=== PATIENT | male | born 1985 | race Two or more races ===

== ENCOUNTER 2023-12-07 14:32 | Emergency (ER) | payer OTHER ==
[2023-12-07 15:02] VITALS: O2SAT 99
--- NOTE | 2023-12-07 18:46 | XRAY Report ---
PROCEDURE: Knee 3V LT INDICATIONS: lower leg swelling TECHNIQUE: 3 views of the knee(s) were acquired. COMPARISON: None. FINDINGS: Bones: No fractures or dislocations. Medial femoral tibial compartment joint space narrowing, subch ondral sclerosis and and marginal osteophyte formation is seen. No significant patellar subluxation. No suspicious bony lesions. Soft tissues: Large knee joint effusion. No suspicious soft tissue calcifications or masses. IMPRESSION: No acute left knee fracture or dislocation. Mild medial femoral tibial compartment osteoarthritis. La rge joint effusion. Reviewed by: Chaparro Schmitt MD on 12/07/2023 6:45 PM PDT Approved by: Chaparro Schmitt MD on 12/07/2023 6:45 PM PDT Station ID: [id number]
--- NOTE | 2023-12-07 18:47 | Ultrasound Report ---
PROCEDURE: Duplex Ext Veins Left INDICATIONS: lower leg swelling TECHNIQUE: Real-time imaging, as well as color and pulse Doppler interrogation, were performed of the lower extr emity deep veins from the inguinal ligament to the popliteal fossa. Attempted visualization of the ca lf veins was performed. COMPARISON: None. FINDINGS: The deep veins are normally compressible, and free of intraluminal thrombus. Color and pu lse Doppler demonstrate normal phasic intraluminal flow. There is normal augmentation response to di stal compression maneuver. There is a significant left knee joint effusion measures 12.9 x 3.1 x 17.1 cm in size. No popliteal c yst is seen. IMPRESSION: No deep venous thrombosis of the visualized lower extremity. Large joint effusion. No popliteal cyst. Reviewed by: Chaparro Schmitt MD on 12/07/2023 6:46 PM PDT Approved by: Chaparro Schmitt MD on 12/07/2023 6:46 PM PDT Station ID: [id number]
--- NOTE | 2023-12-07 19:19 | ED Physician Documentation ---
History of Present Illness - Stated complaint Stated Complaint: LT KNEE SWOLLEN - Chief complaint Chief Complaint: Ext Problem - History obtained from History obtained from: Patient - History of Present Illness Pain level max: 8 Pain level now: 8 - Additonal information Additional information: . Patient is a 38-year-old male presenting to the emergency department with left knee swelling he notes symptoms started on shortly after he returned from a trip to [place]. Patient notes he has a history of gout as well he has been trying his colchicine at home that he takes for flareups without relief. Patient is not on any daily gout medication. He denies any fevers or chills he is able to bear weight on it. He notes this is occurred before with his history of gout and it resolved on its own after colchicine. Patient has concerns today of swelling now has extended to his left foot and he recently traveled he is concerned for possible clot in his leg. Patient has no history of DVT or PE. No history of surgery to his left knee or foot. PD PAST MEDICAL HISTORY - Past Medical History Past Medical History: Yes Other Past Medical History: gout - Past Surgical History Past Surgical History: Yes Ortho: Other - Present Medications Home Medications: Ambulatory Orders Medication Instructions Recorded Confirmed predniSONE [Deltasone] 20 mg PO [id number] #21 tab 12/07/23 - Allergies Allergies/Adverse Reactions: Allergies Allergy/AdvReac Type Severity Reaction Status Date / Time No Known Drug Allergies Allergy Verified 12/07/23 14:53 - Social History Does the pt smoke?: No Smoking Status: Never smoker Does the pt drink ETOH?: Yes Does the pt have substance abuse?: No - Immunizations Immunizations are current?: Yes Results - Vitals Vitals: Vital Signs - 24 hr 12/07/23 14:53 Temperature 36.5 C Heart Rate 100 Respiratory 16 Rate Blood Pressure 149/97 H O2 Saturation 99 PD Medical Decision Making - ED course Complexity details: reviewed results ED course: Patient is a 38-year-old male presenting to the emergency department with left knee pain and swelling. Patient notes symptoms started on after he returned from a trip he has a history of gout and has been taking colchicine but no significant relief. No fevers or chills he is able to bear some weight on it. He denies any recent falls or other trauma to his knee. He notes this is occurred 1 other time a few years ago and he took his colchicine and had improvement in his symptoms. Given recent travel and history of gout will obtain x-ray as well as ultrasound of left leg for further evaluation. Vitals are stable on arrival he denies any chest pain or shortness of breath no tachycardia and he is afebrile. Mild swelling noted to the left leg with large amount of swelling to left knee no significant erythema no significant laxity patient is able to flex knee and extend knee but symptoms feel best when it is slightly flexed in bed. X-ray of left knee does show a large joint effusion and ultrasound shows no signs of DVT. Reevaluated patient will give short course of steroids given colchicine does not seem to be helping patient's symptoms patient is able to bear weight on it he continues to deny any fevers or chills. Given he is able to flex and bend knee and no acute cause for infection feel safe discharging patient home. Patient was given strict return precautions to return with any fevers worsening pain increased swelling redness to the area difficulty bearing weight or bend the knee. Patient understands and is agreeable with this plan. Departure - Departure Disposition: 01 Home, Self Care Clinical Impression: Pain in extremity, Gout attack Condition: Good Prescriptions: predniSONE [Deltasone] 20 mg PO [id number] #21 tab Comments: You need to follow-up with your PCP in outpatient setting and is sure to keep leg elevated ice and I have given you an Jerry wrap and crutches remain off of it until swelling improves you should continue taking colchicine at home as well as a short course of steroids to help with the symptoms. I suspect symptoms most likely secondary to gout given no fevers you are able to bear weight on it and symptoms have occurred before with history of gout in left knee. Keep leg elevated iced and if you are unable to bear weight or have fevers or chills you need to return to emergency department. Reevaluate in 1 week by PCP Forms: PCP List
[2023-12-07 20:40] VITALS: BP 148/83
== END 2023-12-07 20:48 | disposition home or self-care (01) ==
LOC: ED 14:32
DX: M10.9 Gout, unspecified (principal); M25.462 Effusion, left knee
CPT/HCPCS: 99283; 99284